=== PATIENT | female | born 1940 | race Caucasian/White ===

== ENCOUNTER 2017-09-15 12:37 | Emergency (ER) | payer MEDICARE, OTHER ==
[~2017-09-15] VITALS: Ht 149.9 cm; Wt 60.0 kg
[~2017-09-15 12:37] MED LIST: ASPI81 PO; ATOR10 PO; CALCTAB98; CETI5TAB2 PO; HYDR12.56 PO; LOSA25TA31 PO; OMEG1CAP53 PO; RANI150 PO
[2017-09-15 12:41] VITALS: BP 147/71; PULSE 71; RESP 16; TEMP 97.5; O2SAT 95
[2017-09-15] MEDS ORDERED: SODIUM CHLOR 0.9% 1000 ML INJ 1,000 ML IV SCH (12:54)
[2017-09-15] MEDS ORDERED: SODIUM CHLORIDE 0.9% FLUSH 10 ML FLUSH IV FLUSH PRN (13:00)
[2017-09-15] MEDS ORDERED: ONDANSETRON HCL 4 MG/2 ML VIAL IVP ONE (13:00)
[2017-09-15 13:04] LABS: BILIRUBIN, URINE NEG (NEG); BLOOD, URINE NEG (NEG); GLUCOSE,URINE NEG (NEG); KETONE, URINE NEG (NEG); NITRITE,URINE NEG (NEG)
[2017-09-15 13:05] VITALS: O2SAT 97
[2017-09-15 13:09] LABS: URINE COLOR YELLOW (YELLW/STRAW); URINE LEUKOCYTE ESTERASE SMALL (NEG)
[2017-09-15 13:10] LABS: BACTERIA, URINE OCC /hpf; RBC, URINE 0-3 /hpf (0-3); SQUAMOUS EPITHELIAL CELL URINE 0-5 /hpf (0-5)
[2017-09-15 13:11] LABS: AMORPHOUS SEDIMENT, URINE FEW
[2017-09-15 13:18] LABS: AUTOMATED NEUTROPHIL # 5.5 TH/MM3 (1.8-7.7); BASOPHIL # 0.1 TH/MM3 (0-0.2); BASOPHIL % 2.1 % (0.0-2.0); EOSINOPHIL # 0.1 TH/MM3 (0-0.4); EOSINOPHIL % 1.5 % (0.0-4.0); HEMATOCRIT 39.2 % (35.0-46.0); HEMOGLOBIN 12.8 GM/DL (11.6-15.3); LYMPH % 7.9 % (9.0-44.0); LYMPHOCYTE # 0.5 TH/MM3 (1.0-4.8); MEAN CORPUSCULAR HEMOGLOBIN 29.1 PG (27.0-34.0); MEAN CORPUSCULAR HGB CONC 32.8 % (32.0-36.0); MEAN PLATELET VOLUME 8.8 FL (7.0-11.0); MONO % 7.9 % (0.0-8.0); MONOCYTE # 0.5 TH/MM3 (0-0.9); NEUT % 80.6 % (16.0-70.0); PLATELET COUNT 190 TH/MM3 (150-450); RED CELL DISTRIBUTION WIDTH 12.8 % (11.6-17.2); WHITE BLOOD COUNT 6.7 TH/MM3 (4.0-11.0)
[2017-09-15 13:26] LABS: CHLORIDE 105 MEQ/L (98-107); SODIUM (NA) 140 MEQ/L (136-145)
[2017-09-15 13:30] LABS: ALBUMIN 3.6 GM/DL (3.4-5.0); BICARBONATE 28.1 MEQ/L (21.0-32.0); CALCIUM 8.7 MG/DL (8.5-10.1); GLUCOSE,RANDOM 90 MG/DL (74-106); LIPASE 221 U/L (73-393)
[2017-09-15 13:31] LABS: BLOOD UREA NITROGEN 19 MG/DL (7-18)
[2017-09-15 13:33] LABS: ALT (GPT) 18 U/L (10-53); AST (GOT) 19 U/L (15-37); CREATININE 0.77 MG/DL (0.50-1.00); GLOMERULAR FILTRATION RATE 73 ML/MIN (>89)
[2017-09-15 13:35] LABS: TOTAL BILIRUBIN ADULT 0.7 MG/DL (0.2-1.0)
[2017-09-15 13:36] LABS: ALKALINE PHOSPHATASE 39 U/L (45-117)
[2017-09-15] MEDS ORDERED: LACTCAP8 PO (13:38)
[2017-09-15] MEDS ORDERED: CARV6.252 PO (13:38)
[2017-09-15] MEDS ORDERED: CHOL4POW3 PO (13:38)
[2017-09-15] MEDS ORDERED: ASPI-516 CHEW (13:38)
[2017-09-15] MEDS ORDERED: ZANT150T2 PO (13:38)
[2017-09-15 13:45] VITALS: BP 145/74; PULSE 70; RESP 16; O2SAT 97
--- NOTE | 2017-09-15 13:57 | PD ---
HPI Chief Complaint: Abdominal Pain Time Seen by Provider: 12:54 Travel History International Travel<30 days: No Contact w/Intl Traveler<30days: No Traveled to known affect area: No History of Present Illness HPI Patient presents with complaints of left lower abdominal pain since yesterday afternoon. Reports some associated nausea yesterday which has resolved now. She does have a history of colitis. Denies any current nausea vomiting. Denies any urinary or bowel symptoms. Reports a bowel movement this morning. Denies any blood per stool. PFSH Past Medical History High Cholesterol: Yes (LIPITOR) Gastrointestinal Disorders: Yes (colitis) Genitourinary: No Hypertension: Yes Reproductive: No Tetanus Vaccination: > 5 Years Influenza Vaccination: Yes ?: Not Past Surgical History Appendectomy: Yes Gynecologic Surgery: Yes (HYSTERECTORMY) Hysterectomy: Yes Social History Alcohol Use: Yes (occ) Tobacco Use: No Substance Use: No Allergies-Medications (Allergen,Severity, Reaction): Coded Allergies: codeine (Verified Allergy, Intermediate, Nausea/Vomiting, 09/15/17) Sulfa (Sulfonamide Antibiotics) (Verified Allergy, Unknown, 09/15/17) Reported Meds & Prescriptions Reported Meds & Active Scripts Active Reported Probiotic (Lactobacillus Acidophilus) 10 Billion Cell Cap 1 Cap PO TIDAC Cholestyramine 4 Gm/Dose Powd 2 Gm PO DAILY 1 level scoopful of powder contains 4 grams of cholestyramine. Carvedilol 6.25 Mg Tab 6.25 Mg PO BID Zantac (Ranitidine HCl) 150 Mg Tab 150 Mg PO DAILY Aspirin 81 Mg Chew 81 Mg CHEW HS [Calcium] 600 DIRECTED Review of Systems General / Constitutional: No: Fever Eyes: No: Visual changes HENT: No: Headaches Cardiovascular: No: Chest Pain or Discomfort Respiratory: No: Shortness of Breath Gastrointestinal: Positive: Abdominal Pain Genitourinary: No: Dysuria Musculoskeletal: No: Pain Skin: No Rash Neurologic: No: Weakness Psychiatric: No: Depression Endocrine: No: Polydipsia Hematologic/Lymphatic: No: Easy Bruising Physical Exam Narrative GENERAL: Well-nourished, well-developed patient. SKIN: Focused skin assessment warm/dry. HEAD: Normocephalic. EYES: No scleral icterus. No injection or drainage. NECK: Supple, trachea midline. No JVD or lymphadenopathy. CARDIOVASCULAR: Regular rate and rhythm without murmurs, gallops, or rubs. RESPIRATORY: Breath sounds equal bilaterally. No accessory muscle use. GASTROINTESTINAL: Abdomen soft, tender left lower quadrant with mild distention MUSCULOSKELETAL: No cyanosis, or edema. BACK: Nontender without obvious deformity. No CVA tenderness. Data Data Last Documented VS Vital Signs Date Time Temp Pulse Resp B/P (MAP) Pulse Ox O2 Delivery O2 Flow Rate FiO2 09/15/17 13:45 70 16 145/74 (97) 97 Room Air 09/15/17 12:41 97.5 Orders Orders Urinalysis - C+S If Indicated (09/15/17 12:45) Complete Blood Count With Diff (09/15/17 12:54) Comprehensive Metabolic Panel (09/15/17 12:54) Lipase (09/15/17 12:54) Lactic Acid (09/15/17 12:54) Ct Abd/Pel W Iv Contrast(Rout) (09/15/17 12:54) Iv Access Insert/Monitor (09/15/17 12:54) Ecg Monitoring (09/15/17 12:54) Oximetry (09/15/17 12:54) NPO (09/15/17 12:54) Ondansetron Inj (Zofran Inj) (09/15/17 13:00) Sodium Chlor 0.9% 1000 Ml Inj (Ns 1000 M (09/15/17 12:54) Sodium Chloride 0.9% Flush (Ns Flush) (09/15/17 13:00) Urine Culture (09/15/17 12:56) Iohexol 350 Inj (Omnipaque 350 Inj) (09/15/17 13:59) Labs Laboratory Tests Test 09/15/17 12:56 09/15/17 13:07 Urine Collection Type CLEAN CATCH Urine Color YELLOW Urine Turbidity CLEAR Urine pH 7.0 Urine Specific Josephine 1.015 Urine Protein NEG mg/dL Urine Glucose (UA) NEG mg/dL Urine Ketones NEG mg/dL Urine Occult Blood NEG Urine Nitrite NEG Urine Bilirubin NEG Urine Leukocyte Esterase SMALL Urine RBC 0-3 /hpf Urine WBC 9-14 /hpf Urine Squamous Epithelial Cells 0-5 /hpf Urine Amorphous Sediment FEW Urine Bacteria OCC /hpf Microscopic Urinalysis Comment CULTURE INDICATED Urine Collection Time 12:56 White Blood Count 6.7 TH/MM3 Red Blood Count 4.40 MIL/MM3 Hemoglobin 12.8 GM/DL Hematocrit 39.2 % Mean Corpuscular Volume 89.0 FL Mean Corpuscular Hemoglobin 29.1 PG Mean Corpuscular Hemoglobin Concent 32.8 % Red Cell Distribution Width 12.8 % Platelet Count 190 TH/MM3 Mean Platelet Volume 8.8 FL Neutrophils (%) (Auto) 80.6 % Lymphocytes (%) (Auto) 7.9 % Monocytes (%) (Auto) 7.9 % Eosinophils (%) (Auto) 1.5 % Basophils (%) (Auto) 2.1 % Neutrophils # (Auto) 5.5 TH/MM3 Lymphocytes # (Auto) 0.5 TH/MM3 Monocytes # (Auto) 0.5 TH/MM3 Eosinophils # (Auto) 0.1 TH/MM3 Basophils # (Auto) 0.1 TH/MM3 CBC Comment DIFF FINAL Differential Comment Blood Urea Nitrogen 19 MG/DL Creatinine 0.77 MG/DL Random Glucose 90 MG/DL Total Protein 7.0 GM/DL Albumin 3.6 GM/DL Calcium Level 8.7 MG/DL Alkaline Phosphatase 39 U/L Aspartate Amino Transf (AST/SGOT) 19 U/L Alanine Aminotransferase (ALT/SGPT) 18 U/L Total Bilirubin 0.7 MG/DL Sodium Level 140 MEQ/L Potassium Level 3.9 MEQ/L Chloride Level 105 MEQ/L Carbon Dioxide Level 28.1 MEQ/L Anion Gap 7 MEQ/L Estimat Glomerular Filtration Rate 73 ML/MIN Lactic Acid Level 0.5 mmol/L Lipase 221 U/L MDM Medical Decision Making Medical Screen Exam Complete: Yes Emergency Medical Condition: Yes Differential Diagnosis Diverticulitis, colitis, ischemic bowel, enteritis Narrative Course Assessment and plan discussed with patient and at bedside. Last 72 hours Impressions Abdomen/Pelvis CT 09/15/17 1254 Signed Impressions: Service Date/Time: Friday, September 15, 2017 13:40 - CONCLUSION: Bowel wall thickening mid sigmoid colon with minimal mesenteric changes. This could be early colitis. I don't see significant diverticulitis. Nasim Rosales MD FACR Diagnosis Primary Impression: Colitis Patient Instructions: General Instructions Additional Instructions: Encouraged a bland high-fiber brat diet. Encourage good fluid intake. Antibiotics as prescribed. Follow-up with PCP. Return emergently onset of new symptoms. Med/Other Pt SpecificInfo: Prescription(s) given Scripts Tramadol (Ultram) 50 Mg Tab 50 MG PO Q6H Y for PAIN for 15 Days, #60 TAB 0 Refills Prov: Jayden Kelly MD 09/15/17 Metronidazole (Flagyl) 500 Mg Tab 500 MG PO BID for Infection for 7 Days, #14 TAB 0 Refills Prov: Jayden Kelly MD 09/15/17 Levofloxacin (Levaquin) 500 Mg Tablet 500 MG PO DAILY for Infection for 7 Days, #7 TAB 0 Refills Prov: Jayden Kelly MD 09/15/17 Disposition: 01 DISCHARGE HOME Jayden Kelly MD Sep 15, 2017 13:57
[2017-09-15] MEDS ORDERED: IOHEXOL 350 MG/ML 10 ML VIAL (for RAD DIAG) IVCONTRAST ONE (13:59)
--- NOTE | 2017-09-15 14:28 | RADRPT ---
EXAM DATE/TIME: 09/15/2017 13:40 [facility] COMPARISON: No previous studies available for comparison. INDICATIONS : Lower abdominal pain, nausea, diarrhea. IV CONTRAST: 96 cc Omnipaque 350 (iohexol) IV ORAL CONTRAST: No oral contrast ingested. RADIATION DOSE: 9.70 CTDIvol (mGy) MEDICAL HISTORY : Hypercholesterolemia. Hypertension. SURGICAL HISTORY : Appendectomy. Hysterectomy. ENCOUNTER: Initial ACUITY: 2 days PAIN SCALE: 5/10 LOCATION: lower abdomen. TECHNIQUE: Volumetric scanning of the abdomen and pelvis was performed. Using automated exposure control and ad justment of the mA and/or kV according to patient size, radiation dose was kept as low as reasonably achievable to obtain optimal diagnostic quality images. DICOM format image data is available electro nically for review and comparison. FINDINGS: Mild compensated cardiomegaly. Lung base is clear. The liver, spleen and pancreas are unremarkable There is mild gallbladder wall thickening without significant inflammatory changes The adrenals glands are unremarkable The right kidney is normal Small 1 cm cyst left kidney There is no adenopathy In the pelvis there are scattered diverticuli sigmoid colon without diverticulitis. There is mild gerard wel bowel wall thickening the sigmoid it could be early colitis with minimal mesentery edema. Bladder is unremarkable There is no free fluid CONCLUSION: Bowel wall thickening mid sigmoid colon with minimal mesenteric changes. This could be early colitis . I don't see significant diverticulitis. Nasim Rosales MD FACR on September 15, 2017 at 14:23 Board Certified Radiologist. This report was verified electronically.
[2017-09-15] MEDS ORDERED: LEVA500T33 PO (15:04)
[2017-09-15] MEDS ORDERED: TRAM50 PO (15:04)
[2017-09-15] MEDS ORDERED: METR-1 PO (15:04)
== END 2017-09-15 15:16 | disposition home or self-care (01) ==
LOC: PHED 12:37
DX: K52.9 Noninfective gastroenteritis and colitis, unspecified (principal); E78.00 Pure hypercholesterolemia, unspecified; I10 Essential (primary) hypertension
CPT/HCPCS: 74177; 80053; 81001; 83605; 83690; 85025; 87086; 96374; 99285; J2405; J7030; Q9967